=== PATIENT | female | born 1955 | race Caucasian/White ===

== ENCOUNTER 2023-12-31 04:26 | Day surgery (SDC) | payer OTHER ==
[2023-12-28 13:01] VITALS: BMI 29.5
[2023-12-31] MEDS ORDERED: LIDOCAINE 1%/EPI 1:100000 (20 ML MULTI DOSE VIAL) ONE (10:09)
[2023-12-31] MEDS ORDERED: BACITRACIN ZINC 15 GM TUBE TOPICAL OINTMENT ONE (10:09)
[2023-12-31] MEDS ORDERED: GENTAMICIN SO4 80 MG/2 ML VIAL ONE (10:09)
[2023-12-31] MEDS ORDERED: ONDANSETRON 4 MG/2 ML VIAL IVPUSH PRN (12:13)
[2023-12-31] MEDS ORDERED: oxyCODONE HCL 5 MG TABLET PO PRN (12:13)
[2023-12-31] MEDS ORDERED: PROMETHAZINE HCL 25 MG/1 ML VIAL IVPB PRN (12:13)
[2023-12-31] MEDS ORDERED: SODIUM CHLORIDE 0.9% P/F 10 ML VIAL IJ ONE (12:29)
[2023-12-31] MEDS ORDERED: PROPOFOL 20 ML ONE (12:29)
[2023-12-31] MEDS ORDERED: FENTANYL CITRATE/PF 50 MCG/ML VIAL ONE ×3 (12:29→15:27)
[2023-12-31] MEDS ORDERED: ceFAZolin SODIUM 1 GM VIAL ONE (12:29)
[2023-12-31] MEDS ORDERED: LIDOCAINE HCL/PF 2% SDV 5ML VIAL ONE (12:29)
[2023-12-31] MEDS: ceFAZolin SODIUM 1 GM VIAL IVPB ONE (12:38)
[2023-12-31] MEDS ORDERED: ONDANSETRON 4 MG/2 ML VIAL ONE (12:41)
[2023-12-31] MEDS ORDERED: DEXAMETHASONE SOD PHOSPHATE 4 MG/1 ML VIAL ONE (12:41)
[2023-12-31] MEDS: BACITRACIN ZINC 15 GM TUBE TOPICAL OINTMENT TP ONE (12:46)
[2023-12-31] MEDS: GENTAMICIN SO4 80 MG/2 ML VIAL IVPB ONE (12:46)
[2023-12-31] MEDS: LIDOCAINE 1%/EPI 1:100000 (20 ML MULTI DOSE VIAL) IJ ONE (12:48)
[2023-12-31 16:55] VITALS: RESP 18
[2023-12-31 17:21] VITALS: BP 138/63; PULSE 80; TEMP 97.5
== END 2023-12-31 17:36 | disposition home or self-care (01) ==
LOC: JASU-SURG 04:26
PROVIDERS: ATTEND Urology
PROC: 0TSD0ZZ Reposition Urethra, Open Approach (ICD-10-PCS; principal; 2023-12-31 12:00)
DX: N39.3 Stress incontinence (female) (male) (principal)
CPT/HCPCS: 57288; C1771; 86850; 86900; 86901; 94760